=== PATIENT | male | born 1940 | race Caucasian/White ===

== ENCOUNTER 2016-12-18 17:46 | Outpatient (CLI) ==
[2016-12-18 17:42] LABS: BASOPHILS # (AUTO) 0.1 K/uL (0-0.2); BASOPHILS % (AUTO) 0.7 % (0.0-3.0); EOSINOPHILS # (AUTO) 0.4 K/ul (0.0-0.7); EOSINOPHILS % (AUTO) 5.5 % (0.0-7.0); HEMATOCRIT 43.7 % (42.0-52.0); HEMOGLOBIN 15.2 g/dl (14.0-18.0); IMMATURE GRANULOCYTE % (AUTO) 0.3 % (0.0-5.0); LYMPHOCYTES # (AUTO) 1.3 K/uL (0.60-3.4); MEAN CORPUSCULAR HEMOGLOBIN 30.3 pg (27.0-31.0); MEAN CORPUSCULAR HGB CONC 34.8 (31.8-35.4); MEAN CORPUSCULAR VOLUME 87.2 fl (80.0-94.0); MONOCYTES # (AUTO) 0.6 K/uL (0.4-2.0); MONOCYTES % (AUTO) 9.1 (0-10); NEUTROPHILS # (AUTO) 4.6 K/ul (2.0-6.9); NEUTROPHILS % (AUTO) 65.4; PLATELET COUNT 164 10^3/uL (140-440); RED BLOOD COUNT 5.01 10^6/ul (4.70-6.10); WHITE BLOOD COUNT 6.95 K/ul (4.2-10.2)
[2016-12-18 17:46] LABS: BILIRUBIN,URINE Negative (NEGATIVE); KETONES,URINE Negative (NEGATIVE); LEUKOCYTE ESTERASE ,URINE Negative (NEGATIVE); NITRITE,URINE Negative (NEGATIVE); PROTEIN,URINE Negative (NEGATIVE); URINE, BLOOD Negative (NEGATIVE)
[2016-12-18 17:58] LABS: OCCULT BLOOD INTERNAL QC 1 INTERNAL QC VALID; OCCULT BLOOD SAMPLE 1 NEGATIVE (NEGATIVE)
[2016-12-18 17:59] LABS: OCCULT BLOOD SAMPLE 2 NO SPECIMEN RECEIVED (NEGATIVE)
[2016-12-18 18:00] LABS: OCCULT BLOOD SAMPLE 3 NO SPECIMEN RECEIVED (NEGATIVE)
[2016-12-18 18:02] LABS: ADD URINE MICROSCOPIC NO
[2016-12-18 18:28] LABS: ALBUMIN/GLOBULIN RATIO 1.14; ANION GAP 14.8; BILIRUBIN,TOTAL 0.65 mg/dL (0.00-1.20); BUN/CREATININE RATIO 14.01; CALCIUM 9.7 mg/dL (8.2-10.2); CHOL/HDL RATIO 6.5 (4.5-6.4); CREATININE 1.07 mg/dL (0.60-1.10); POTASSIUM 3.8 mmol/L (3.5-5.1); TOTAL PROTEIN 7.5 g/dL (5.8-8.1)
[2016-12-18 18:36] LABS: OCCULT BLOOD INTERNAL QC 2 INTERNAL QC VALID; OCCULT BLOOD INTERNAL QC 3 INTERNAL QC VALID
== END 2016-12-18 17:47 | disposition home or self-care (01) ==
LOC: LAB 17:46
PROVIDERS: ATTEND General Practice
DX: I10 Essential (primary) hypertension (principal); R05 Cough; R74.8 Abnormal levels of other serum enzymes; N40.0 Benign prostatic hyperplasia without lower urinary tract symptoms; K59.00 Constipation, unspecified; Z79.899 Other long term (current) drug therapy
CPT/HCPCS: 36415; 80053; 80061; 81001; 82272; 84153; 85025

== ENCOUNTER 2017-09-05 01:40 | Emergency (ER) ==
--- NOTE | 2017-09-05 02:15 | ED.PDOC ---
General ED Provider: Dr. MEGAN PALOMO Chief Complaint: Extremity Pain/Injury Stated Complaint: Patient is a 77 year old male who states he suddenly woke up with left forarm pain the radiated to the left arm and is constant better after taking Aspirin. Time Seen by Physician: 02:13 Mode of Arrival: Walk-In Information Source: Patient Primary Care Provider[facility] Triage Documentation Reviewed and Agree: Yes Musculoskeletal Complaint Exam - Upper Extremity Complaint/Exam Location of Pain: Reports: Left Mechanism of Injury: Reports: No known trauma Onset/Duration: 3.5 hours Symptoms Are: Still present Timing: Constant Initial Severity: Severe Current Severity: Moderate Character: Reports: Throbbing Aggravating: Reports: None Alleviating: Reports: OTC meds (aspirin) Compartment Syndrome Risk Factors: Present: Pain. Absent: Paralysis, Pallor, Pulselessness, Paresthesias Differential Diagnoses: Other (Acute [place]) Quality Indicator For Non-Traumatic Chest Pain/Syncope: EKG Performed Review of Systems - Review Of Systems Constitutional: Reports: No symptoms Eyes: Reports: No symptoms Ears, Nose, Mouth, Throat: Reports: No symptoms Respiratory: Reports: No symptoms Cardiac: Denies: Chest pain GI: Denies: Abdomen distended : Reports: No symptoms Musculoskeletal: Reports: Muscle pain (Left arm and Forearm ) Skin: Reports: No symptoms Neurological: Reports: Anxiety All Other Systems: Reviewed and Negative Past Medical History - Past Medical History Previously Healthy: Yes Endocrine: Reports: None Cardiovascular: Reports: Hypertension Respiratory: Reports: None Hematological: Reports: None Gastrointestinal: Reports: GERD Genitourinary: Reports: None Neuro/Psych: Reports: None Musculoskeletal: Reports: Arthritis Cancer: Reports: None - Surgical History General Surgical History: Reports: None - Family History Family History: Reports: Unknown - Social History Smoking Status: Former smoker Hx Substance Use: No Alcohol Screening: None - Immunizations Tetanus Shot up to Date: (UNKNOWN) Physical Exam - Physical Exam Appearance: Ill-appearing Ill-appearing: Mild Pain Distress: Moderate Neck: Supple Respiratory: Airway patent, Breath sounds clear, Breath sounds equal, Respirations nonlabored Cardiovascular: Bradycardia GI/: Soft, Nontender, No masses, Bowel sounds normal, No Organomegaly Musculoskeletal: Normal strength, ROM intact, No edema, No calf tenderness Skin: Warm, Dry, Normal color Neurological: Sensation intact, Motor intact, Reflexes intact, Cranial nerves intact, Alert, Oriented Psychiatric: Anxious Interpretation - Radiology Interpretation Radiology Interpretation By: ED Physician Radiology Results: Negative Exam Interpreted: 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 Appearance: NAD Physician Notification - Case Discussed Physician Notified: Henry Time of Notification: 04:40 (accepted to [id number] [facility] ) Critical Care Note - Critical Care Note Total Time (mins): 40 Course - Course Hematology/Chemistry: 09/05/17 02:20 09/05/17 02:20 Orders, Labs, Meds: Lab Review 09/05/17 09/05/17 02:20 02:20 WBC 6.63 RBC 4.65 L Hgb 14.3 Hct 40.2 L MCV 86.5 MCH 30.8 MCHC 35.6 H RDW Coeff of Amber 12.9 Plt Count 115 L Immature Gran % (Auto) 0.3 Neut % (Auto) 80.7 Lymph % (Auto) 11.6 [place] % (Auto) 5.1 Eos % (Auto) 1.8 Baso % (Auto) 0.5 Immature Gran # (Auto) 0.0 Neut # 5.4 Lymph # 0.8 [place] # 0.3 L Eos # 0.1 Baso # 0.0 Sodium 138 Potassium 4.1 Chloride 105 Carbon Dioxide 26 Anion Gap 11.1 BUN 16 Creatinine 0.89 Estimated GFR (MDRD) 82.00 BUN/Creatinine Ratio 17.97 Glucose 128 H Calcium 9.5 Total Bilirubin 0.95 AST 28 ALT 19 Alkaline Phosphatase 101 Total Creatine Kinase 160 CK-MB (CK-2) 15.7 H* CK-MB (CK-2) % 9.01447 Troponin I 0.3630 Total Protein 6.9 Albumin 3.8 Globulin 3.1 Albumin/Globulin Ratio 1.23 Orders Category Date Time Status EKG-(ED ONLY) Stat CARDIO 09/05/17 02:11 Completed EKG-(ED ONLY) Stat CARDIO 09/05/17 04:23 Ordered ED IV/MEDIPORT/POWERPORT .ONCE EMERGENCY 09/05/17 02:23 Active CBC W/ AUTO DIFF Stat LAB 09/05/17 02:20 Completed COMPREHENSIVE METABOLIC PANEL Stat LAB 09/05/17 02:20 Completed CREATINE KINASE Stat LAB 09/05/17 02:20 Completed TROPONIN I Stat LAB 09/05/17 02:20 Completed TROPONIN I Stat LAB 09/05/17 03:50 Received 0.9 % Sodium Chloride [Saline Flush] MEDS 09/05/17 02:23 Ordered 1 syr IVF PRN PRN Aspirin [Aspirin Chewable] MEDS 09/05/17 02:27 Discontinued 324 mg PO ONCE STA Enoxaparin Sodium [Lovenox] MEDS 09/05/17 04:24 Discontinued 80 mg SUBCUT ONCE STA Morphine Sulfate [Morphine 4 mg/ml Vial] MEDS 09/05/17 02:27 Discontinued 4 mg IVP ONCE STA Nitroglycerin [Nitrostat] MEDS 09/05/17 02:23 Discontinued 0.4 mg SL ONCE STA Ondansetron HCl/Pf [Zofran 4 mg/2 ml] MEDS 09/05/17 02:28 Discontinued 4 mg IVP ONCE STA Sodium Chloride 0.9% [Sodium Chloride] 1,000 ml MEDS 09/05/17 02:23 Active IV 100 mls/hr Medications Generic Name Dose Route Start Last Admin Trade Name Freq PRN Reason Stop Dose Admin Sodium Chloride 1,000 mls @ 100 mls/hr 09/05/17 02:23 Sodium Chloride IV 09/05/17 12:22 .Q10H STA Sodium Chloride 1 syr 09/05/17 02:23 09/05/17 02:45 Saline Flush IVF 1 syr PRN PRN Administration To flush IV Discontinued Medications Generic Name Dose Route Start Last Admin Trade Name Freq PRN Reason Stop Dose Admin Aspirin 324 mg 09/05/17 02:27 09/05/17 02:41 Aspirin Chewable PO 09/05/17 02:28 324 mg ONCE STA Administration Enoxaparin Sodium 80 mg 09/05/17 04:24 Lovenox SUBCUT 09/05/17 04:25 ONCE STA Morphine Sulfate 4 mg 09/05/17 02:27 Morphine 4 Mg/Ml Vial IVP 09/05/17 02:28 ONCE STA Nitroglycerin 0.4 mg 09/05/17 02:23 09/05/17 02:45 Nitrostat SL 09/05/17 02:24 0.4 mg ONCE STA Administration Ondansetron HCl 4 mg 09/05/17 02:28 Zofran 4 Mg/2 Ml IVP 09/05/17 02:29 ONCE STA Vital Signs: Temp Pulse Resp BP Pulse Ox 09/05/17 01:41 97.2 F L 46 L 18 106/61 96 Departure - Departure Time of Disposition: 05:10 Disposition: TSF SHORT-TRM HOSP Discharge Problem: NSTEMI (non-ST elevated myocardial infarction) Condition: Stable Pt referred to PMD for follow-up: No Allergies/Adverse Reactions: Allergies No Known Allergies Allergy (Verified 09/05/17 01:49) Home Medications: Ambulatory Orders Multi Vitamin Daily 1 tab PO DAILY 06/14/15 Pt. Stabilized Within Hospital's Capabilities/Transferred To: [facility] Transfer Form Completed: Yes Disposition Discussed With: Patient
[2017-09-05] MEDS ORDERED: TORADOL IM STA (02:19)
[2017-09-05] MEDS ORDERED: SODIUM CHLORIDE 1,000 ML IV STA (02:23)
[2017-09-05] MEDS ORDERED: NITROSTAT SL STA (02:23)
[2017-09-05] MEDS ORDERED: MORPHINE 4 MG/ML VIAL IVP STA (02:27)
[2017-09-05] MEDS ORDERED: ASPIRIN CHEWABLE PO STA (02:27)
[2017-09-05 02:28] LABS: BASOPHILS % (AUTO) 0.5 % (0.0-3.0); EOSINOPHILS # (AUTO) 0.1 K/ul (0.0-0.7); EOSINOPHILS % (AUTO) 1.8 % (0.0-7.0); HEMATOCRIT 40.2 % (42.0-52.0); HEMOGLOBIN 14.3 g/dl (14.0-18.0); IMMATURE GRANULOCYTE % (AUTO) 0.3 % (0.0-5.0); LYMPHOCYTES # (AUTO) 0.8 K/uL (0.60-3.4); LYMPHOCYTES % (AUTO) 11.6 (10.0-50.0); MEAN CORPUSCULAR HEMOGLOBIN 30.8 pg (27.0-31.0); MEAN CORPUSCULAR HGB CONC 35.6 (31.8-35.4); MEAN CORPUSCULAR VOLUME 86.5 fl (80.0-94.0); MONOCYTES # (AUTO) 0.3 K/uL (0.4-2.0); MONOCYTES % (AUTO) 5.1 (0-10); NEUTROPHILS # (AUTO) 5.4 K/ul (2.0-6.9); NEUTROPHILS % (AUTO) 80.7; PLATELET COUNT 115 10^3/uL (140-440); RED BLOOD COUNT 4.65 10^6/ul (4.70-6.10); WHITE BLOOD COUNT 6.63 K/ul (4.2-10.2)
[2017-09-05] MEDS ORDERED: ZOFRAN 4 MG/2 ML IVP STA (02:28)
[2017-09-05 03:19] LABS: ALBUMIN 3.8 g/dL (3.4-5.0); ALBUMIN/GLOBULIN RATIO 1.23; ANION GAP 11.1; BILIRUBIN,TOTAL 0.95 mg/dL (0.00-1.20); BUN/CREATININE RATIO 17.97; CALCIUM 9.5 mg/dL (8.2-10.2); CREATININE 0.89 mg/dL (0.60-1.10); POTASSIUM 4.1 mmol/L (3.5-5.1); TOTAL PROTEIN 6.9 g/dL (5.8-8.1); TROPONIN I 0.363 ng/ml (0.0000-0.4000)
[2017-09-05 03:24] LABS: CREATINE KINASE MB 15.7 ng/ml (0.0-3.6)
[2017-09-05] MEDS ORDERED: LOVENOX SUBCUT STA (04:24)
[2017-09-05] MEDS ORDERED: HEPARIN IV SCH (04:45)
[2017-09-05] MEDS ORDERED: D5W IV SCH (04:45)
[2017-09-05] MEDS ORDERED: HEPARIN ONE (04:53)
[2017-09-05] MEDS ORDERED: HEPARIN IVP STA (05:00)
[2017-09-05 07:21] VITALS: BP 106/61; TEMP 97.2; BMI 25.8
--- NOTE | 2017-09-05 07:56 | DI ---
EXAM: Single view of the chest. History: Acute myocardial infarction. Comparison: Chest radiograph 11/04/2015 Findings: Heart size is within normal limits. No focal consolidation. No appreciable pleural fluid and no pneumothorax. Atherosclerotic vascular calcifications. No acute osseous abnormalities. Impression: No acute cardiopulmonary process
== END 2017-09-05 05:50 | disposition short-term general hospital (02) ==
LOC: ED 01:40
DX: I21.4 Non-ST elevation (NSTEMI) myocardial infarction (principal); I10 Essential (primary) hypertension; M79.632 Pain in left forearm; R79.89 Other specified abnormal findings of blood chemistry
CPT/HCPCS: 36415; 80053; 82550; 82553; 84484; 85025; 85730; 93005; 93010; 96365; 96376; 99285

== ENCOUNTER 2017-09-24 11:48 | Outpatient (CLI) ==
--- NOTE | 2017-09-24 12:40 | US ---
EXAM: Ultrasound venous Doppler right and left lower extermity HISTORY: Swelling COMPARISON: None TECHNIQUE: Venous duplex ultrasound of the right and left lower extremity was performed using color, mondragon-scale, and Doppler flow imaging. FINDINGS: There is normal color flow and compression of the right and left common femoral, greater s aphenous, profunda femoral, femoral, popliteal, peroneal, posterior tibial, and anterior tibial veins without evidence of intraluminal thrombus. IMPRESSION: No right or left lower extremity deep venous thrombosis.
--- NOTE | 2017-09-24 12:44 | DI ---
EXAM: Chest two views HISTORY: Other specified symptoms and signs involving circulatory and respiratory COMPARISON: 09/05/2017 TECHNIQUE: Two views of the chest were performed FINDINGS: New small left pleural effusion with fissural fluid. Adjacent atelectasis versus less lik chilo consolidation. No visible pneumothorax. Heart top normal in size. Mediastinal contour unchange d, noting atherosclerosis. Median sternotomy wires. Small thin density projects over the left upper thorax may represent a clip or possibly external to the patient, uncertain etiology. IMPRESSION: New small left pleural effusion and fissural fluid with adjacent atelectasis versus less likely pneumonia.
== END 2017-09-24 11:49 | disposition home or self-care (01) ==
LOC: RAD 11:48
PROVIDERS: ATTEND General Practice
DX: M79.89 Other specified soft tissue disorders (principal); R09.89 Other specified symptoms and signs involving the circulatory and respiratory systems

== ENCOUNTER 2018-03-16 10:23 | Outpatient (CLI) | END 2018-03-16 10:24 | disposition home or self-care (01) | LOC: FCC-LAB 10:23 | PROVIDERS: ATTEND General Practice | DX: I10 Essential (primary) hypertension (principal); N40.0 Benign prostatic hyperplasia without lower urinary tract symptoms; R63.4 Abnormal weight loss; Z79.899 Other long term (current) drug therapy; Z95.1 Presence of aortocoronary bypass graft | CPT/HCPCS: 36415; 80053; 80061; 81001; 84153; 85025 ==

== ENCOUNTER 2018-03-24 10:14 | Outpatient (CLI) | payer OTHER | END 2018-03-24 10:15 | disposition home or self-care (01) | LOC: FCC-LAB 10:14 | PROVIDERS: ATTEND General Practice | DX: R74.8 Abnormal levels of other serum enzymes (principal) | CPT/HCPCS: 36415; 82977; 83625; 84075; 84080 ==

== ENCOUNTER 2018-06-29 10:21 | Outpatient (CLI) | END 2018-06-29 10:22 | disposition home or self-care (01) | LOC: FCC-LAB 10:21 | PROVIDERS: ATTEND General Practice | DX: R74.8 Abnormal levels of other serum enzymes (principal); D64.9 Anemia, unspecified; Z95.1 Presence of aortocoronary bypass graft; Z79.899 Other long term (current) drug therapy | CPT/HCPCS: 36415; 80053; 80061; 81001; 85025 ==

== ENCOUNTER 2018-10-03 09:11 | Outpatient (CLI) | END 2018-10-03 09:12 | disposition home or self-care (01) | LOC: RHC-LAB 09:11 | PROVIDERS: ATTEND General Practice | DX: N40.0 Benign prostatic hyperplasia without lower urinary tract symptoms (principal); I10 Essential (primary) hypertension; Z79.899 Other long term (current) drug therapy; Z95.1 Presence of aortocoronary bypass graft | CPT/HCPCS: 36415; 80053; 80061; 81001; 85025 ==

== ENCOUNTER 2018-10-06 10:54 | Outpatient (CLI) ==
--- NOTE | 2018-10-06 12:41 | US ---
EXAM: Right lower extremity venous Doppler History: Right lower extremity pain. Technique: Multiple sonographic images through the right lower extremity were obtained. Color duple x Doppler was used to interrogate vascular flow. Findings: The right common femoral, greater saphenous, profunda, superficial femoral, popliteal, reinier sherita, posterior tibial and anterior tibial veins demonstrate spontaneous flow with normal compression and normal augmentation. Impression: No sonographic evidence for deep venous thrombosis
--- NOTE | 2018-10-06 12:49 | US ---
EXAM: Complete abdominal ultrasound. History: Abnormal laboratory values, abdominal pain. Technique: Multiple sonographic images through the abdomen were obtained. Color duplex Doppler was used to interrogate vascular flow. Findings: The liver is not enlarged according to the sonographic measurement given. A ureteral jet was seen in the bladder. No focal bladder wall thickening. Prominent prostate abutting the base of the bladder . The visualized abdominal aorta and IVC demonstrate normal caliber. No focal liver lesions identified sonographically. There is antegrade flow within the main portal ve in. The liver is not echogenic. No shadowing gallstones. Gallbladder wall is not thickened. Common bile duct measures 0.4 cm in gustavo iber. Spleen is not enlarged. No focal splenic lesions. Both kidneys measure normal in long length demonstrating normal cortical echogenicity without evidenc e for hydronephrosis, mass or shadowing calculus. Impression: 1. No acute sonographic findings. 2. No evidence for a fatty liver. 3. Prominent prostate abutting the base of the bladder.
== END 2018-10-06 10:55 | disposition home or self-care (01) ==
LOC: RAD 10:54
PROVIDERS: ATTEND General Practice
DX: R74.8 Abnormal levels of other serum enzymes (principal); M79.89 Other specified soft tissue disorders

== ENCOUNTER 2019-04-04 08:03 | Outpatient (CLI) | payer OTHER | END 2019-04-04 08:04 | disposition home or self-care (01) | LOC: RHC-LAB 08:03 | PROVIDERS: ATTEND General Practice | DX: E78.5 Hyperlipidemia, unspecified (principal); Z79.899 Other long term (current) drug therapy; I10 Essential (primary) hypertension | CPT/HCPCS: 36415; 80053; 80061; 81001; 85025 ==

== ENCOUNTER 2019-08-07 07:51 | Outpatient (CLI) | payer OTHER | END 2019-08-07 07:52 | disposition home or self-care (01) | LOC: RHC-LAB 07:51 | PROVIDERS: ATTEND General Practice | DX: I10 Essential (primary) hypertension (principal); E78.5 Hyperlipidemia, unspecified; Z95.1 Presence of aortocoronary bypass graft; N40.0 Benign prostatic hyperplasia without lower urinary tract symptoms | CPT/HCPCS: 36415; 80053; 80061; 81001; 85025 ==